=== PATIENT | female | born 1945 | race African-American/Black ===

== ENCOUNTER 2023-04-08 15:04 | Inpatient (IN) | payer BC, OTHER ==
[~2023-04-08] VITALS: Ht 172.7 cm; Wt 134.7 kg
[2023-04-08 15:17] VITALS: BP 111/55; PULSE 121; RESP 26; TEMP 97.9; O2SAT 94
[2023-04-08] MEDS ORDERED: NACL 0.9% 2,000 ML IV ONE (15:30)
[2023-04-08 15:54] LABS: HEMATOCRIT 39.5 % (36-48); MEAN CORPUSCULAR HEMOGLOBIN 30 pg (27-31); MEAN CORPUSCULAR HGB CONC 33 g/dL (33-37); MEAN CORPUSCULAR VOLUME 89.9 fL (80-94); PLATELET COUNT (AUTO) 129 K/uL (140-450); RED CELL DISTRIBUTION WIDTH 15.4 % (11.6-13.7); WHITE BLOOD COUNT (AUTO) 16.1 K/uL (4.8-10.8)
[2023-04-08 16:05] LABS: ANION GAP 16.8 (8-16); CALCIUM 8.2 mg/dL (8.5-10.1); CHLORIDE 94 mmol/L (98-107); CREATININE 3.2 mg/dL (0.6-1.3); POTASSIUM 3.8 mmol/L (3.5-5.1); SODIUM SERUM 129 mmol/L (136-145); UREA NITROGEN, BLOOD 42 mg/dL (7-18)
[2023-04-08 16:15] LABS: LACTIC ACID 6.1 mmol/L (0.4-2.0)
[2023-04-08 16:16] LABS: GLUCOSE 533 mg/dL (74-106)
[2023-04-08 16:19] LABS: BASOPHILS % (MANUAL) 0 % (0-2); EOSINOPHILS % (MANUAL) 0 % (0-4); LYMPHOCYTES % (MANUAL) 5 % (20-46); METAMYELOCYTES % 4 % (0-0); MONOCYTES % (MANUAL) 1 % (5-12); MYELOCYTES % 2 % (0-0); SMUDGE CELLS FEW
[2023-04-08] MEDS ORDERED: cefTRIAXone 1,000 MG VIAL ONE (16:27)
[2023-04-08] MEDS ORDERED: KCL 20 MEQ IN 100 mL PREMIX 100 ML IV ONE (16:35)
[2023-04-08] MEDS ORDERED: INSULIN REGULAR, HUMAN 100 UNIT in NACL 0.9% 100 ML IV ONE ×4 (16:35→18:05)
[2023-04-08 17:30] VITALS: O2SAT 92
[2023-04-08] MEDS ORDERED: DEXTROSE 50% 50 ML SYR IVP PRN ×2 (18:20→21:00)
[2023-04-08] MEDS ORDERED: INSULIN REGULAR, HUMAN 100 UNIT in NACL 0.9% 100 ML IV SCH ×2 (18:20)
[2023-04-08] MEDS: BLOOD GLUCOSE MONITORING 1 DEV DEV FS SCH ×7 (18:40→23:30)
[2023-04-08 19:24] LABS: ANION GAP 10.9 (8-16); CHLORIDE 96 mmol/L (98-107); CREATININE 3.5 mg/dL (0.6-1.3); POTASSIUM 3.9 mmol/L (3.5-5.1); SODIUM SERUM 131 mmol/L (136-145); UREA NITROGEN, BLOOD 44 mg/dL (7-18)
[2023-04-08 19:33] LABS: GLUCOSE 472 mg/dL (74-106)
[2023-04-08 19:40] LABS: FREE T4 (FREE THYROXINE) 1.09 ng/dL (0.76-1.46); THYROID STIMULATING HORMONE 0.25 uIU/mL (0.34-3.74)
[2023-04-08] MEDS ORDERED: diazePAM 5 MG TAB PO ONE (19:40)
[2023-04-08 19:44] LABS: MAGNESIUM 2.1 mg/dL (1.8-2.4); PHOSPHORUS 3.1 mg/dL (2.5-4.9)
[2023-04-08] MEDS: NACL 0.9% 1,000 ML IV SCH (20:30)
[2023-04-08 21:00] VITALS: BP 119/66; PULSE 106; PULSE 108; RESP 24; RESP 34; TEMP 97.2; O2SAT 94
[2023-04-08 22:00] VITALS: BP 120/63; PULSE 106; RESP 37; O2SAT 93
[2023-04-08] MEDS: FUROSEMIDE 40 MG/4 ML VIAL IVP SCH (22:38)
[2023-04-08 23:00] VITALS: BP 100/66; PULSE 110; RESP 36; O2SAT 93
[2023-04-09] VITALS (19 sets, daily range): BP systolic 101–159; BP diastolic 63–88; PULSE 101–120; RESP 20–34; TEMP 98–99; O2SAT 91–97
[2023-04-09] MEDS: DEXT 5% / NACL 0.45% 1,000 ML IV SCH ×4 (00:35→12:00)
[2023-04-09 00:48] LABS: APPEARANCE,URINE CLEAR (CLEAR); BILIRUBIN,URINE 1+ (NEGATIVE); BLOOD, URINE 3+ (NEGATIVE); COLOR,URINE YELLOW (YELLOW); LEUKOCYTE ESTERASE ,URINE NEGATIVE (NEGATIVE); NITRITE, URINE NEGATIVE (NEGATIVE); PROTEIN,URINE 2+ (NEGATIVE); UGLUCOSE TRACE (NEGATIVE); UROBILINOGEN,URINE 0.2 EU/dL (0.2 - 1)
[2023-04-09 00:52] LABS: ANION GAP 12.9 (8-16); CALCIUM 8.1 mg/dL (8.5-10.1); CARBON DIOXIDE 26.9 mmol/L (21-32); CHLORIDE 100 mmol/L (98-107); CREATININE 3.8 mg/dL (0.6-1.3); GLUCOSE 148 mg/dL (74-106); POTASSIUM 3.8 mmol/L (3.5-5.1); SODIUM SERUM 136 mmol/L (136-145); UREA NITROGEN, BLOOD 46 mg/dL (7-18)
[2023-04-09 00:53] LABS: BACTERIA,URINE 10-30 (MOD) /HPF (None Seen); ICTOTEST POSITIVE (NEGATIVE); RBC,URINE TOO NUMEROUS TO COUN /HPF (0-5); WBC,URINE 0-5 /HPF (0-5)
[2023-04-09 00:54] LABS: MUCUS,URINE 1+ /LPF (None Seen); SQUAMOUS EPITHELIAL CELL,UR 4-10 (MOD) /LPF (0-3 (FEW))
[2023-04-09 00:57] LABS: MAGNESIUM 2.2 mg/dL (1.8-2.4); PHOSPHORUS 3.3 mg/dL (2.5-4.9)
[2023-04-09] MEDS: BLOOD GLUCOSE MONITORING 1 DEV DEV FS SCH ×16 (01:30→21:35)
[2023-04-09] MEDS: NACL 0.9% 1,000 ML IV SCH ×4 (03:51→15:46)
[2023-04-09 04:57] LABS: ANION GAP 14.4 (8-16); CARBON DIOXIDE 21.4 mmol/L (21-32); CHLORIDE 100 mmol/L (98-107); CREATININE 3.9 mg/dL (0.6-1.3); GLUCOSE 199 mg/dL (74-106); POTASSIUM 3.8 mmol/L (3.5-5.1); SODIUM SERUM 132 mmol/L (136-145); UREA NITROGEN, BLOOD 49 mg/dL (7-18)
[2023-04-09 05:31] LABS: PHOSPHORUS 2.6 mg/dL (2.5-4.9)
[2023-04-09] MEDS: INSULIN REGULAR, HUMAN 100 UNIT in NACL 0.9% 100 ML IV SCH ×4 (07:23→12:24)
[2023-04-09] MEDS: FUROSEMIDE 40 MG/4 ML VIAL IVP SCH ×2 (08:18→21:35)
[2023-04-09 08:22] LABS: ANION GAP 12.8 (8-16); CALCIUM 7.8 mg/dL (8.5-10.1); CARBON DIOXIDE 22.8 mmol/L (21-32); CHLORIDE 101 mmol/L (98-107); GLUCOSE 185 mg/dL (74-106); POTASSIUM 3.6 mmol/L (3.5-5.1); SODIUM SERUM 133 mmol/L (136-145); UREA NITROGEN, BLOOD 50 mg/dL (7-18)
[2023-04-09 08:27] LABS: MAGNESIUM 2.1 mg/dL (1.8-2.4); PHOSPHORUS 2.6 mg/dL (2.5-4.9)
[2023-04-09 08:32] LABS: CREATININE 4.1 mg/dL (0.6-1.3)
[2023-04-09 10:46] LABS: BASOPHILS % (AUTO) 0.3 % (0.0-2.0); EOSINOPHILS # (AUTO) 3.3 K/uL (0-0.4); EOSINOPHILS % (AUTO) 19.4 % (0.0-4.0); HEMATOCRIT 35.8 % (36-48); HEMOGLOBIN 11.8 g/dL (12.0-16.0); LYMPHOCYTES # (AUTO) 0.7 K/uL (2.5-16.5); LYMPHOCYTES % (AUTO) 4.4 % (20.5-51.1); MEAN CORPUSCULAR HEMOGLOBIN 29 pg (27-31); MEAN CORPUSCULAR HGB CONC 33 g/dL (33-37); MEAN CORPUSCULAR VOLUME 87.9 fL (80-94); MONOCYTES # (AUTO) 0.7 K/uL (0.8-1.0); MONOCYTES % (AUTO) 3.9 % (1.7-9.3); NEUTROPHILS # (AUTO) 12.2 K/uL (1.8-7.7); PLATELET COUNT (AUTO) 86 K/uL (140-450); RED BLOOD CELL COUNT(AUTO) 4.07 MIL/uL (4.20-5.40); RED CELL DISTRIBUTION WIDTH 15.1 % (11.6-13.7); WHITE BLOOD COUNT (AUTO) 16.9 K/uL (4.8-10.8)
[2023-04-09] MEDS ORDERED: ALBUTEROL SULFATE/IPRATROPIU 3 ML SOL IH ONE (13:22)
[2023-04-09] MEDS: ALBUTEROL SULFATE/IPRATROPIU 3 ML SOL IH PRN ×2 (13:33→15:33)
[2023-04-09] MEDS ORDERED: FOAM DRESSING TP PRN (13:55)
[2023-04-09] MEDS ORDERED: DEXTROSE 50% 50 ML SYR IVP PRN ×3 (14:40→14:45)
[2023-04-09] MEDS ORDERED: INSULIN LISPRO SLIDING SCALE 100 UNITS/ML VIAL SUBQ PRN ×2 (14:40→14:45)
[2023-04-09] MEDS ORDERED: INSULIN LANTUS 100 UNITS/ML 10 ML VIAL SUBQ SCH (15:00)
[2023-04-09] MEDS: FOAM DRESSING TP SCH (15:47)
[2023-04-09] MEDS ORDERED: BLOOD GLUCOSE MONITORING 1 DEV DEV FS SCH ×2 (16:30)
[2023-04-09] MEDS: INSULIN LISPRO SLIDING SCALE 100 UNITS/ML VIAL SUBQ PRN ×2 (16:55→21:38)
[2023-04-09] MEDS: predniSONE 20 MG TAB PO SCH (16:57)
[2023-04-09 18:13] LABS: BASOPHILS % (AUTO) 0.3 % (0.0-2.0); EOSINOPHILS # (AUTO) 1.7 K/uL (0-0.4); EOSINOPHILS % (AUTO) 10.7 % (0.0-4.0); HEMATOCRIT 36.5 % (36-48); HEMOGLOBIN 12.1 g/dL (12.0-16.0); LYMPHOCYTES # (AUTO) 0.9 K/uL (2.5-16.5); LYMPHOCYTES % (AUTO) 5.4 % (20.5-51.1); MEAN CORPUSCULAR HEMOGLOBIN 29 pg (27-31); MEAN CORPUSCULAR HGB CONC 33 g/dL (33-37); MEAN CORPUSCULAR VOLUME 88.4 fL (80-94); MONOCYTES # (AUTO) 0.9 K/uL (0.8-1.0); MONOCYTES % (AUTO) 5.6 % (1.7-9.3); NEUTROPHILS # (AUTO) 12.5 K/uL (1.8-7.7); PLATELET COUNT (AUTO) 96 K/uL (140-450); RED BLOOD CELL COUNT(AUTO) 4.13 MIL/uL (4.20-5.40); RED CELL DISTRIBUTION WIDTH 15.4 % (11.6-13.7); WHITE BLOOD COUNT (AUTO) 16.1 K/uL (4.8-10.8)
[2023-04-09 18:24] LABS: ANION GAP 14.5 (8-16); CALCIUM 7.9 mg/dL (8.5-10.1); CARBON DIOXIDE 23.2 mmol/L (21-32); CHLORIDE 99 mmol/L (98-107); GLUCOSE 268 mg/dL (74-106); POTASSIUM 3.7 mmol/L (3.5-5.1); SODIUM SERUM 133 mmol/L (136-145); UREA NITROGEN, BLOOD 55 mg/dL (7-18)
[2023-04-09 18:27] LABS: CREATININE 4.6 mg/dL (0.6-1.3)
[2023-04-09] MEDS: ALBUTEROL SULFATE/IPRATROPIU 3 ML SOL IH SCH (19:37)
[2023-04-09] MEDS: BUDESONIDE 0.5 MG/2 ML NEBU INH SCH (19:37)
[2023-04-09] MEDS: FAMOTIDINE 20 MG/2 ML VIAL IV SCH (21:36)
[2023-04-10] VITALS (18 sets, daily range): BP systolic 112–134; BP diastolic 58–78; PULSE 101–120; RESP 15–26; TEMP 96.3–98.4; O2SAT 94–98
[2023-04-10] MEDS: ALBUTEROL SULFATE/IPRATROPIU 3 ML SOL IH SCH ×4 (00:46→20:40)
[2023-04-10] MEDS: HYDRAGUARD CREAM TP SCH ×2 (01:00→13:04)
[2023-04-10] MEDS: NACL 0.9% 1,000 ML IV SCH ×3 (06:38→22:28)
[2023-04-10] MEDS: BLOOD GLUCOSE MONITORING 1 DEV DEV FS SCH ×14 (06:51→23:40)
[2023-04-10 06:55] LABS: BASOPHILS % (AUTO) 0.2 % (0.0-2.0); EOSINOPHILS # (AUTO) 0.7 K/uL (0-0.4); EOSINOPHILS % (AUTO) 4.4 % (0.0-4.0); HEMATOCRIT 36.2 % (36-48); HEMOGLOBIN 12.1 g/dL (12.0-16.0); LYMPHOCYTES % (AUTO) 6.5 % (20.5-51.1); MEAN CORPUSCULAR HEMOGLOBIN 30 pg (27-31); MEAN CORPUSCULAR HGB CONC 34 g/dL (33-37); MEAN CORPUSCULAR VOLUME 89.2 fL (80-94); MONOCYTES # (AUTO) 0.5 K/uL (0.8-1.0); MONOCYTES % (AUTO) 3.4 % (1.7-9.3); NEUTROPHILS # (AUTO) 13.4 K/uL (1.8-7.7); NEUTROPHILS % (AUTO) 85.5 % (42.2-75.2); PLATELET COUNT (AUTO) 103 K/uL (140-450); RED BLOOD CELL COUNT(AUTO) 4.05 MIL/uL (4.20-5.40); RED CELL DISTRIBUTION WIDTH 16.1 % (11.6-13.7); WHITE BLOOD COUNT (AUTO) 15.7 K/uL (4.8-10.8)
[2023-04-10] MEDS: INSULIN LISPRO SLIDING SCALE 100 UNITS/ML VIAL SUBQ PRN ×2 (06:55→11:50)
[2023-04-10] MEDS: BUDESONIDE 0.5 MG/2 ML NEBU INH SCH ×2 (06:57→20:40)
[2023-04-10 07:02] LABS: ALANINE AMINOTRANSFERASE 319 U/L (12-78); ALBUMIN 1.7 g/dL (3.4-5.0); ALKALINE PHOSPHATASE 489 U/L (50-136); ANION GAP 21.1 (8-16); ASPARTATE AMINOTRANSFERASE 313 U/L (15-37); CALCIUM 7.9 mg/dL (8.5-10.1); CARBON DIOXIDE 18.4 mmol/L (21-32); CHLORIDE 96 mmol/L (98-107); GLUCOSE 397 mg/dL (74-106); MAGNESIUM 2.4 mg/dL (1.8-2.4); POTASSIUM 4.5 mmol/L (3.5-5.1); SODIUM SERUM 131 mmol/L (136-145); TOTAL BILIRUBIN 6.4 mg/dL (0.0-1.0); TOTAL PROTEIN, SERUM 6.1 g/dL (6.4-8.2)
[2023-04-10 07:35] LABS: CREATININE 5.3 mg/dL (0.6-1.3); UREA NITROGEN, BLOOD 70 mg/dL (7-18)
[2023-04-10] MEDS: FUROSEMIDE 40 MG/4 ML VIAL IVP SCH ×2 (08:27→20:47)
[2023-04-10] MEDS: predniSONE 20 MG TAB PO SCH (08:28)
[2023-04-10] MEDS ORDERED: INSULIN LANTUS 100 UNITS/ML 10 ML VIAL SUBQ SCH ×2 (09:00→12:30)
[2023-04-10] MEDS: AZITHROMYCIN 250 MG TAB PO SCH (09:41)
[2023-04-10 12:08] LABS: T4 (THYROXINE) 5.7 ug/dL (4.5-12.0)
[2023-04-10] MEDS: FOAM DRESSING TP SCH (13:04)
[2023-04-10] MEDS: GAUZE TP SCH (13:04)
[2023-04-10] MEDS ORDERED: INSULIN LISPRO SLIDING SCALE 100 UNITS/ML VIAL SUBQ PRN (14:55)
[2023-04-10] MEDS ORDERED: DEXTROSE 50% 50 ML SYR IVP PRN (14:55)
[2023-04-10 15:56] LABS: CALCIUM 8.1 mg/dL (8.5-10.1); CHLORIDE 93 mmol/L (98-107); SODIUM SERUM 127 mmol/L (136-145)
[2023-04-10 15:57] LABS: GLUCOSE 579 mg/dL (74-106)
[2023-04-10 15:58] LABS: CREATININE 5.6 mg/dL (0.6-1.3); UREA NITROGEN, BLOOD 82 mg/dL (7-18)
[2023-04-10] MEDS ORDERED: BLOOD GLUCOSE MONITORING 1 DEV DEV FS SCH (16:00)
[2023-04-10] MEDS: INSULIN REGULAR, HUMAN 100 UNIT in NACL 0.9% 100 ML IV SCH ×4 (16:07→23:34)
[2023-04-10 20:45] LABS: ANION GAP 14.8 (8-16); CALCIUM 8.1 mg/dL (8.5-10.1); CARBON DIOXIDE 21.1 mmol/L (21-32); CHLORIDE 95 mmol/L (98-107); POTASSIUM 3.9 mmol/L (3.5-5.1); SODIUM SERUM 127 mmol/L (136-145)
[2023-04-10 20:46] LABS: GLUCOSE 480 mg/dL (74-106)
[2023-04-10 20:48] LABS: CREATININE 5.6 mg/dL (0.6-1.3); UREA NITROGEN, BLOOD 84 mg/dL (7-18)
[2023-04-10 20:50] LABS: MAGNESIUM 2.5 mg/dL (1.8-2.4); PHOSPHORUS 3.4 mg/dL (2.5-4.9)
[2023-04-11] VITALS (29 sets, daily range): BP systolic 111–156; BP diastolic 57–91; PULSE 93–116; RESP 12–24; TEMP 96.7–97.6; O2SAT 93–100
[2023-04-11] MEDS: BLOOD GLUCOSE MONITORING 1 DEV DEV FS SCH ×24 (00:30→23:34)
[2023-04-11 00:38] LABS: ANION GAP 13.7 (8-16); CALCIUM 7.7 mg/dL (8.5-10.1); CARBON DIOXIDE 22.1 mmol/L (21-32); CHLORIDE 96 mmol/L (98-107); GLUCOSE 387 mg/dL (74-106); POTASSIUM 3.8 mmol/L (3.5-5.1); SODIUM SERUM 128 mmol/L (136-145)
[2023-04-11 00:43] LABS: MAGNESIUM 2.4 mg/dL (1.8-2.4); PHOSPHORUS 3.8 mg/dL (2.5-4.9)
[2023-04-11 00:46] LABS: CREATININE 5.7 mg/dL (0.6-1.3); UREA NITROGEN, BLOOD 85 mg/dL (7-18)
[2023-04-11] MEDS: ALBUTEROL SULFATE/IPRATROPIU 3 ML SOL IH SCH ×5 (01:00→19:26)
[2023-04-11] MEDS: HYDRAGUARD CREAM TP SCH ×2 (01:00→12:45)
[2023-04-11 04:16] LABS: HEMATOCRIT 35.1 % (36-48); HEMOGLOBIN 11.8 g/dL (12.0-16.0); MEAN CORPUSCULAR HEMOGLOBIN 30 pg (27-31); MEAN CORPUSCULAR HGB CONC 34 g/dL (33-37); MEAN CORPUSCULAR VOLUME 87.9 fL (80-94); PLATELET COUNT (AUTO) 121 K/uL (140-450); RED BLOOD CELL COUNT(AUTO) 3.99 MIL/uL (4.20-5.40); RED CELL DISTRIBUTION WIDTH 15.8 % (11.6-13.7); WHITE BLOOD COUNT (AUTO) 17.7 K/uL (4.8-10.8)
[2023-04-11 04:31] LABS: ALANINE AMINOTRANSFERASE 367 U/L (12-78); ALBUMIN 1.8 g/dL (3.4-5.0); ALKALINE PHOSPHATASE 665 U/L (50-136); ANION GAP 16.2 (8-16); ASPARTATE AMINOTRANSFERASE 385 U/L (15-37); CALCIUM 7.8 mg/dL (8.5-10.1); CARBON DIOXIDE 21.2 mmol/L (21-32); CHLORIDE 97 mmol/L (98-107); GLUCOSE 263 mg/dL (74-106); MAGNESIUM 2.4 mg/dL (1.8-2.4); PHOSPHORUS 3.8 mg/dL (2.5-4.9); POTASSIUM 3.4 mmol/L (3.5-5.1); SODIUM SERUM 131 mmol/L (136-145); TOTAL BILIRUBIN 6.6 mg/dL (0.0-1.0); TOTAL PROTEIN, SERUM 6.1 g/dL (6.4-8.2)
[2023-04-11 04:33] LABS: CREATININE 5.7 mg/dL (0.6-1.3); UREA NITROGEN, BLOOD 85 mg/dL (7-18)
[2023-04-11 04:43] LABS: BASOPHILS % (MANUAL) 0 % (0-2); EOSINOPHILS % (MANUAL) 0 % (0-4); LYMPHOCYTES % (MANUAL) 14 % (20-46); MONOCYTES % (MANUAL) 6 % (5-12)
[2023-04-11 04:44] LABS: BLASTS, MANUAL % 1 % (0-0); MYELOCYTES % 1 % (0-0); SMUDGE CELLS FEW
[2023-04-11] MEDS: NACL 0.9% 1,000 ML IV SCH ×3 (05:16→19:06)
[2023-04-11] MEDS: INSULIN REGULAR, HUMAN 100 UNIT in NACL 0.9% 100 ML IV SCH ×4 (05:42→17:50)
[2023-04-11] MEDS: DEXT 5% / NACL 0.45% 1,000 ML IV SCH ×4 (06:31→23:47)
[2023-04-11] MEDS: BUDESONIDE 0.5 MG/2 ML NEBU INH SCH ×2 (07:06→19:27)
[2023-04-11 07:08] LABS: HEPATITIS A ANTIBODY IGM Negative (Negative); HEPATITIS B CORE AB TOTAL Negative (Negative); HEPATITIS B CORE, IGM Negative (Negative); HEPATITIS B SURFACE ANTIBODY Non Reactive (.); HEPATITIS B SURFACE ANTIGEN Negative (Negative); HEPATITIS C VIRUS ANTIBODY Non Reactive (Non Reactive)
[2023-04-11] MEDS ORDERED: POTASSIUM CHLORIDE 10 MEQ TABER PO SCH (08:16)
[2023-04-11] MEDS: FUROSEMIDE 40 MG/4 ML VIAL IVP SCH ×2 (09:07→20:51)
[2023-04-11] MEDS: AZITHROMYCIN 250 MG TAB PO SCH (09:08)
[2023-04-11] MEDS: CEFEPIME 500 MG in DEXTROSE 5% 50 ML IV SCH (09:27)
[2023-04-11] MEDS: FAMOTIDINE 20 MG/2 ML VIAL IV SCH (09:27)
[2023-04-11 09:44] LABS: MAGNESIUM 2.5 mg/dL (1.8-2.4); PHOSPHORUS 3.7 mg/dL (2.5-4.9)
[2023-04-11 09:48] LABS: ANION GAP 15.3 (8-16); CALCIUM 8.1 mg/dL (8.5-10.1); CHLORIDE 98 mmol/L (98-107); GLUCOSE 207 mg/dL (74-106); POTASSIUM 3.3 mmol/L (3.5-5.1); SODIUM SERUM 134 mmol/L (136-145)
[2023-04-11 09:50] LABS: CREATININE 5.6 mg/dL (0.6-1.3); UREA NITROGEN, BLOOD 85 mg/dL (7-18)
[2023-04-11] MEDS: GAUZE TP SCH (12:45)
[2023-04-11] MEDS: FOAM DRESSING TP SCH (12:45)
[2023-04-11 13:44] LABS: ANION GAP 15.1 (8-16); CALCIUM 7.9 mg/dL (8.5-10.1); CARBON DIOXIDE 23.5 mmol/L (21-32); CHLORIDE 98 mmol/L (98-107); GLUCOSE 174 mg/dL (74-106); POTASSIUM 3.6 mmol/L (3.5-5.1); SODIUM SERUM 133 mmol/L (136-145)
[2023-04-11 13:49] LABS: CREATININE 5.5 mg/dL (0.6-1.3); UREA NITROGEN, BLOOD 86 mg/dL (7-18)
[2023-04-11 16:52] LABS: ANION GAP 16.8 (8-16); CALCIUM 8.3 mg/dL (8.5-10.1); CARBON DIOXIDE 21.8 mmol/L (21-32); CHLORIDE 97 mmol/L (98-107); GLUCOSE 202 mg/dL (74-106); POTASSIUM 3.6 mmol/L (3.5-5.1); SODIUM SERUM 132 mmol/L (136-145)
[2023-04-11 16:54] LABS: CREATININE 5.6 mg/dL (0.6-1.3); UREA NITROGEN, BLOOD 88 mg/dL (7-18)
[2023-04-11] MEDS: ACETAMINOPHEN 650 MG/20.3 ML UDC PO PRN (19:06)
[2023-04-11] MEDS ORDERED: HYDROcodone/APAP 5/325 MG 1 TAB TAB PO PRN (20:20)
[2023-04-11 20:42] LABS: ANION GAP 12.6 (8-16); CALCIUM 8.1 mg/dL (8.5-10.1); CARBON DIOXIDE 23.8 mmol/L (21-32); CHLORIDE 99 mmol/L (98-107); GLUCOSE 153 mg/dL (74-106); POTASSIUM 3.4 mmol/L (3.5-5.1); SODIUM SERUM 132 mmol/L (136-145)
[2023-04-11 20:43] LABS: UREA NITROGEN, BLOOD 88 mg/dL (7-18)
[2023-04-11 20:44] LABS: CREATININE 5.6 mg/dL (0.6-1.3)
[2023-04-12] VITALS (27 sets, daily range): BP systolic 101–142; BP diastolic 45–84; PULSE 100–115; RESP 14–26; TEMP 96.7–98.7; O2SAT 91–100
[2023-04-12] MEDS: BLOOD GLUCOSE MONITORING 1 DEV DEV FS SCH ×16 (00:38→20:48)
[2023-04-12 00:39] LABS: ANION GAP 15.3 (8-16); CALCIUM 8.1 mg/dL (8.5-10.1); CARBON DIOXIDE 20.1 mmol/L (21-32); CHLORIDE 100 mmol/L (98-107); GLUCOSE 146 mg/dL (74-106); POTASSIUM 3.4 mmol/L (3.5-5.1); SODIUM SERUM 132 mmol/L (136-145)
[2023-04-12 00:44] LABS: CREATININE 5.4 mg/dL (0.6-1.3); UREA NITROGEN, BLOOD 88 mg/dL (7-18)
[2023-04-12] MEDS: NACL 0.9% 1,000 ML IV SCH ×3 (01:14→15:36)
[2023-04-12] MEDS: ALBUTEROL SULFATE/IPRATROPIU 3 ML SOL IH SCH ×4 (01:30→18:45)
[2023-04-12] MEDS: HYDRAGUARD CREAM TP SCH ×2 (01:47→13:00)
[2023-04-12] MEDS: MORPHINE SULFATE 2 MG/ML SYR IVP PRN ×3 (04:01→15:27)
[2023-04-12 04:11] LABS: BASOPHILS # (AUTO) 0.1 K/uL (0.00-0.22); BASOPHILS % (AUTO) 0.6 % (0.0-2.0); EOSINOPHILS # (AUTO) 0.2 K/uL (0-0.4); EOSINOPHILS % (AUTO) 1.3 % (0.0-4.0); HEMATOCRIT 36.1 % (36-48); HEMOGLOBIN 12.3 g/dL (12.0-16.0); LYMPHOCYTES # (AUTO) 2.3 K/uL (2.5-16.5); LYMPHOCYTES % (AUTO) 16.7 % (20.5-51.1); MEAN CORPUSCULAR HEMOGLOBIN 30 pg (27-31); MEAN CORPUSCULAR HGB CONC 34 g/dL (33-37); MEAN CORPUSCULAR VOLUME 86.8 fL (80-94); MONOCYTES # (AUTO) 0.9 K/uL (0.8-1.0); MONOCYTES % (AUTO) 6.5 % (1.7-9.3); NEUTROPHILS # (AUTO) 10.1 K/uL (1.8-7.7); NEUTROPHILS % (AUTO) 74.9 % (42.2-75.2); PLATELET COUNT (AUTO) 117 K/uL (140-450); RED BLOOD CELL COUNT(AUTO) 4.16 MIL/uL (4.20-5.40); RED CELL DISTRIBUTION WIDTH 15.3 % (11.6-13.7); WHITE BLOOD COUNT (AUTO) 13.5 K/uL (4.8-10.8)
[2023-04-12 05:25] LABS: ALANINE AMINOTRANSFERASE 411 U/L (12-78); ALBUMIN 1.6 g/dL (3.4-5.0); ALKALINE PHOSPHATASE 682 U/L (50-136); ANION GAP 13.3 (8-16); ASPARTATE AMINOTRANSFERASE 356 U/L (15-37); CALCIUM 7.7 mg/dL (8.5-10.1); CARBON DIOXIDE 24.2 mmol/L (21-32); CHLORIDE 98 mmol/L (98-107); GLUCOSE 122 mg/dL (74-106); MAGNESIUM 2.1 mg/dL (1.8-2.4); POTASSIUM 3.5 mmol/L (3.5-5.1); SODIUM SERUM 132 mmol/L (136-145); TOTAL PROTEIN, SERUM 5.4 g/dL (6.4-8.2)
[2023-04-12 05:30] LABS: CREATININE 5.3 mg/dL (0.6-1.3); UREA NITROGEN, BLOOD 88 mg/dL (7-18)
[2023-04-12] MEDS: DEXT 5% / NACL 0.45% 1,000 ML IV SCH ×2 (05:32→13:07)
[2023-04-12] MEDS: BUDESONIDE 0.5 MG/2 ML NEBU INH SCH ×2 (06:48→18:45)
[2023-04-12] MEDS: FUROSEMIDE 40 MG/4 ML VIAL IVP SCH ×2 (08:27→20:49)
[2023-04-12] MEDS: AZITHROMYCIN 250 MG TAB PO SCH (08:28)
[2023-04-12 08:30] LABS: ANION GAP 12.9 (8-16); CALCIUM 7.9 mg/dL (8.5-10.1); CARBON DIOXIDE 21.6 mmol/L (21-32); CHLORIDE 100 mmol/L (98-107); GLUCOSE 109 mg/dL (74-106); POTASSIUM 3.5 mmol/L (3.5-5.1); SODIUM SERUM 131 mmol/L (136-145)
[2023-04-12 08:34] LABS: CREATININE 5.6 mg/dL (0.6-1.3); UREA NITROGEN, BLOOD 91 mg/dL (7-18)
[2023-04-12] MEDS: INSULIN REGULAR, HUMAN 100 UNIT in NACL 0.9% 100 ML IV SCH ×2 (09:00)
[2023-04-12 09:41] LABS: HEPATITIS A ANTIBODY TOTAL Positive (Negative)
[2023-04-12 09:45] LABS: HEMOGLOBIN A1C 10.9 % (4.8-5.6)
[2023-04-12] MEDS: CEFEPIME 500 MG in DEXTROSE 5% 50 ML IV SCH (09:54)
[2023-04-12 12:56] LABS: ANION GAP 13.3 (8-16); CARBON DIOXIDE 22.4 mmol/L (21-32); CHLORIDE 99 mmol/L (98-107); GLUCOSE 92 mg/dL (74-106); POTASSIUM 3.7 mmol/L (3.5-5.1); SODIUM SERUM 131 mmol/L (136-145)
[2023-04-12 12:57] LABS: UREA NITROGEN, BLOOD 89 mg/dL (7-18)
[2023-04-12 12:58] LABS: CREATININE 5.5 mg/dL (0.6-1.3)
[2023-04-12] MEDS: FOAM DRESSING TP SCH (13:00)
[2023-04-12] MEDS: GAUZE TP SCH (13:00)
[2023-04-12] MEDS ORDERED: INSULIN LANTUS 100 UNITS/ML 10 ML VIAL SUBQ SCH (14:56)
[2023-04-12 16:09] LABS: ANION GAP 13.3 (8-16); CARBON DIOXIDE 21.5 mmol/L (21-32); CHLORIDE 99 mmol/L (98-107); GLUCOSE 129 mg/dL (74-106); POTASSIUM 3.8 mmol/L (3.5-5.1); SODIUM SERUM 130 mmol/L (136-145)
[2023-04-12 16:43] LABS: CREATININE 5.5 mg/dL (0.6-1.3); UREA NITROGEN, BLOOD 89 mg/dL (7-18)
[2023-04-12] MEDS: MEROPENEM 500 MG in NACL 0.9% 50 ML IV SCH (18:42)
[2023-04-12] MEDS: INSULIN LISPRO SLIDING SCALE 100 UNITS/ML VIAL SUBQ PRN (20:51)
[2023-04-12] MEDS ORDERED: MEROPENEM 1,000 MG in NACL 0.9% 50 ML IV SCH (21:00)
[2023-04-13] VITALS (18 sets, daily range): BP systolic 106–139; BP diastolic 53–65; PULSE 92–104; RESP 16–22; TEMP 97.6–98.5; O2SAT 90–100
[2023-04-13] MEDS: ALBUTEROL SULFATE/IPRATROPIU 3 ML SOL IH SCH ×4 (00:23→19:00)
[2023-04-13] MEDS: HYDRAGUARD CREAM TP SCH ×2 (01:00→13:17)
[2023-04-13] MEDS: NACL 0.9% 1,000 ML IV SCH ×3 (03:15→16:51)
[2023-04-13 04:38] LABS: HEMATOCRIT 33.2 % (36-48); HEMOGLOBIN 11.3 g/dL (12.0-16.0); MEAN CORPUSCULAR HEMOGLOBIN 30 pg (27-31); MEAN CORPUSCULAR HGB CONC 34 g/dL (33-37); MEAN CORPUSCULAR VOLUME 86.6 fL (80-94); PLATELET COUNT (AUTO) 145 K/uL (140-450); RED BLOOD CELL COUNT(AUTO) 3.83 MIL/uL (4.20-5.40); RED CELL DISTRIBUTION WIDTH 15.8 % (11.6-13.7); WHITE BLOOD COUNT (AUTO) 16.9 K/uL (4.8-10.8)
[2023-04-13 04:55] LABS: ALANINE AMINOTRANSFERASE 286 U/L (12-78); ALBUMIN 1.4 g/dL (3.4-5.0); ALKALINE PHOSPHATASE 653 U/L (50-136); ANION GAP 11.9 (8-16); ASPARTATE AMINOTRANSFERASE 162 U/L (15-37); CALCIUM 7.8 mg/dL (8.5-10.1); CHLORIDE 98 mmol/L (98-107); GLUCOSE 202 mg/dL (74-106); MAGNESIUM 2.1 mg/dL (1.8-2.4); POTASSIUM 3.9 mmol/L (3.5-5.1); SODIUM SERUM 130 mmol/L (136-145); TOTAL BILIRUBIN 10.4 mg/dL (0.0-1.0); TOTAL PROTEIN, SERUM 5.1 g/dL (6.4-8.2)
[2023-04-13 05:12] LABS: BASOPHILS % (MANUAL) 0 % (0-2); EOSINOPHILS % (MANUAL) 1 % (0-4); LYMPHOCYTES % (MANUAL) 11 % (20-46); MONOCYTES % (MANUAL) 8 % (5-12)
[2023-04-13 05:13] LABS: METAMYELOCYTES % 4 % (0-0); MYELOCYTES % 1 % (0-0); PROMYELOCYTES % 1 % (0-0); SMUDGE CELLS FEW
[2023-04-13 05:21] LABS: CREATININE 5.8 mg/dL (0.6-1.3); UREA NITROGEN, BLOOD 94 mg/dL (7-18)
[2023-04-13] MEDS: BLOOD GLUCOSE MONITORING 1 DEV DEV FS SCH ×4 (06:56→22:01)
[2023-04-13] MEDS: INSULIN LISPRO SLIDING SCALE 100 UNITS/ML VIAL SUBQ PRN ×4 (06:56→22:05)
[2023-04-13] MEDS: BUDESONIDE 0.5 MG/2 ML NEBU INH SCH ×2 (07:01→19:05)
[2023-04-13] MEDS: AZITHROMYCIN 250 MG TAB PO SCH ×2 (09:00→09:23)
[2023-04-13] MEDS ORDERED: INSULIN LANTUS 100 UNITS/ML 10 ML VIAL SUBQ SCH ×2 (09:00→13:11)
[2023-04-13] MEDS: CEFEPIME 500 MG in DEXTROSE 5% 50 ML IV SCH (09:32)
[2023-04-13] MEDS: FAMOTIDINE 20 MG/2 ML VIAL IV SCH (09:32)
[2023-04-13] MEDS: FUROSEMIDE 40 MG/4 ML VIAL IVP SCH ×2 (09:34→21:43)
[2023-04-13] MEDS: GAUZE TP SCH (13:17)
[2023-04-13] MEDS: FOAM DRESSING TP SCH (13:17)
[2023-04-13] MEDS: MEROPENEM 500 MG in NACL 0.9% 50 ML IV SCH (18:47)
[2023-04-13] MEDS: metroNIDAZOLE 500 MG/NS PREMIX 100 ML IV SCH (21:43)
[2023-04-14] VITALS (9 sets, daily range): BP systolic 128–151; BP diastolic 60–68; PULSE 87–97; RESP 18–20; TEMP 96.5–98.8; O2SAT 94–99
[2023-04-14] MEDS: ALBUTEROL SULFATE/IPRATROPIU 3 ML SOL IH SCH ×3 (01:00→13:00)
[2023-04-14] MEDS: HYDRAGUARD CREAM TP SCH ×2 (01:00→13:29)
[2023-04-14] MEDS: BLOOD GLUCOSE MONITORING 1 DEV DEV FS SCH ×4 (06:37→20:29)
[2023-04-14 06:42] LABS: ALANINE AMINOTRANSFERASE 238 U/L (12-78); ALBUMIN 1.5 g/dL (3.4-5.0); ALKALINE PHOSPHATASE 769 U/L (50-136); ANION GAP 14.6 (8-16); ASPARTATE AMINOTRANSFERASE 126 U/L (15-37); CALCIUM 8.4 mg/dL (8.5-10.1); CARBON DIOXIDE 23.1 mmol/L (21-32); CHLORIDE 100 mmol/L (98-107); GLUCOSE 137 mg/dL (74-106); MAGNESIUM 2.3 mg/dL (1.8-2.4); POTASSIUM 3.7 mmol/L (3.5-5.1); SODIUM SERUM 134 mmol/L (136-145); TOTAL BILIRUBIN 11.8 mg/dL (0.0-1.0); TOTAL PROTEIN, SERUM 5.5 g/dL (6.4-8.2)
[2023-04-14 06:44] LABS: CREATININE 5.4 mg/dL (0.6-1.3); UREA NITROGEN, BLOOD 98 mg/dL (7-18)
[2023-04-14 07:03] LABS: HEMATOCRIT 33.4 % (36-48); HEMOGLOBIN 11.3 g/dL (12.0-16.0); MEAN CORPUSCULAR HEMOGLOBIN 29 pg (27-31); MEAN CORPUSCULAR HGB CONC 34 g/dL (33-37); MEAN CORPUSCULAR VOLUME 86.4 fL (80-94); PLATELET COUNT (AUTO) 196 K/uL (140-450); RED BLOOD CELL COUNT(AUTO) 3.87 MIL/uL (4.20-5.40); RED CELL DISTRIBUTION WIDTH 15.2 % (11.6-13.7); WHITE BLOOD COUNT (AUTO) 20.8 K/uL (4.8-10.8)
[2023-04-14] MEDS: NACL 0.9% 1,000 ML IV SCH (07:15)
[2023-04-14] MEDS: BUDESONIDE 0.5 MG/2 ML NEBU INH SCH (07:30)
[2023-04-14 07:48] LABS: EOSINOPHILS % (MANUAL) 2 % (0-4); METAMYELOCYTES % 1 % (0-0); MYELOCYTES % 1 % (0-0)
[2023-04-14 07:50] LABS: LYMPHOCYTES % (MANUAL) 8 % (20-46)
[2023-04-14 07:51] LABS: MONOCYTES % (MANUAL) 6 % (5-12)
[2023-04-14 07:52] LABS: PLATELET ESTIMATE ADEQUATE
[2023-04-14] MEDS: AZITHROMYCIN 250 MG TAB PO SCH (09:00)
[2023-04-14] MEDS: CEFEPIME 500 MG in DEXTROSE 5% 50 ML IV SCH (10:22)
[2023-04-14] MEDS: metroNIDAZOLE 500 MG/NS PREMIX 100 ML IV SCH ×2 (10:22→20:27)
[2023-04-14] MEDS: FUROSEMIDE 40 MG/4 ML VIAL IVP SCH ×2 (10:23→20:26)
[2023-04-14] MEDS: INSULIN LANTUS 100 UNITS/ML 10 ML VIAL SUBQ SCH (10:25)
[2023-04-14 11:25] LABS: INR 1.05 (0.8-1.2)
[2023-04-14] MEDS ORDERED: PHYTONADIONE 10 MG in NACL 0.9% 50 ML IV SCH (11:45)
[2023-04-14] MEDS: GAUZE TP SCH (13:29)
[2023-04-14] MEDS: FOAM DRESSING TP SCH (13:29)
[2023-04-14] MEDS: INSULIN LISPRO SLIDING SCALE 100 UNITS/ML VIAL SUBQ PRN (17:44)
[2023-04-14] MEDS ORDERED: BUDESONIDE 0.5 MG/2 ML NEBU INH PRN (20:05)
[2023-04-15] VITALS (8 sets, daily range): BP systolic 115–148; BP diastolic 50–71; PULSE 76–98; RESP 16–20; TEMP 96.6–98.1; O2SAT 95–98
[2023-04-15] MEDS: HYDRAGUARD CREAM TP SCH ×2 (01:12→13:00)
[2023-04-15] MEDS: MORPHINE SULFATE 2 MG/ML SYR IVP PRN (01:44)
[2023-04-15] MEDS: BLOOD GLUCOSE MONITORING 1 DEV DEV FS SCH ×4 (06:38→20:39)
[2023-04-15 06:56] LABS: BASOPHILS # (AUTO) 0.4 K/uL (0.00-0.22); BASOPHILS % (AUTO) 1.7 % (0.0-2.0); EOSINOPHILS # (AUTO) 0.1 K/uL (0-0.4); EOSINOPHILS % (AUTO) 0.6 % (0.0-4.0); HEMATOCRIT 31.8 % (36-48); HEMOGLOBIN 10.9 g/dL (12.0-16.0); LYMPHOCYTES # (AUTO) 10.5 K/uL (2.5-16.5); LYMPHOCYTES % (AUTO) 51.2 % (20.5-51.1); MEAN CORPUSCULAR HEMOGLOBIN 30 pg (27-31); MEAN CORPUSCULAR HGB CONC 34 g/dL (33-37); MEAN CORPUSCULAR VOLUME 85.7 fL (80-94); MONOCYTES # (AUTO) 1.8 K/uL (0.8-1.0); MONOCYTES % (AUTO) 8.9 % (1.7-9.3); NEUTROPHILS # (AUTO) 7.8 K/uL (1.8-7.7); NEUTROPHILS % (AUTO) 37.6 % (42.2-75.2); PLATELET COUNT (AUTO) 260 K/uL (140-450); RED CELL DISTRIBUTION WIDTH 15.4 % (11.6-13.7); WHITE BLOOD COUNT (AUTO) 20.6 K/uL (4.8-10.8)
[2023-04-15 07:07] LABS: ALANINE AMINOTRANSFERASE 208 U/L (12-78); ALBUMIN 1.5 g/dL (3.4-5.0); ALKALINE PHOSPHATASE 903 U/L (50-136); ANION GAP 14.9 (8-16); ASPARTATE AMINOTRANSFERASE 136 U/L (15-37); CALCIUM 8.1 mg/dL (8.5-10.1); CARBON DIOXIDE 22.6 mmol/L (21-32); CHLORIDE 98 mmol/L (98-107); GLUCOSE 148 mg/dL (74-106); PHOSPHORUS 5.3 mg/dL (2.5-4.9); POTASSIUM 3.5 mmol/L (3.5-5.1); SODIUM SERUM 132 mmol/L (136-145); TOTAL BILIRUBIN 11.7 mg/dL (0.0-1.0); TOTAL PROTEIN, SERUM 5.7 g/dL (6.4-8.2)
[2023-04-15 07:13] LABS: CREATININE 4.9 mg/dL (0.6-1.3); UREA NITROGEN, BLOOD 93 mg/dL (7-18)
[2023-04-15] MEDS ORDERED: BUDESONIDE 0.5 MG/2 ML NEBU INH SCH (07:30)
[2023-04-15] MEDS ORDERED: LORazepam 2 MG/ML VIAL IM/IVP PRN (07:50)
[2023-04-15] MEDS: FAMOTIDINE 20 MG/2 ML VIAL IV SCH (09:38)
[2023-04-15] MEDS: FUROSEMIDE 40 MG/4 ML VIAL IVP SCH (09:38)
[2023-04-15] MEDS: INSULIN LANTUS 100 UNITS/ML 10 ML VIAL SUBQ SCH (09:39)
[2023-04-15] MEDS: CEFEPIME 500 MG in DEXTROSE 5% 50 ML IV SCH (09:43)
[2023-04-15] MEDS: metroNIDAZOLE 500 MG/NS PREMIX 100 ML IV SCH ×2 (09:44→20:31)
[2023-04-15] MEDS ORDERED: POTASSIUM CHLORIDE 10 MEQ TABER PO SCH (11:30)
[2023-04-15] MEDS: FOAM DRESSING TP SCH (13:00)
[2023-04-15] MEDS: GAUZE TP SCH (13:00)
[2023-04-15] MEDS ORDERED: ALBUTEROL SULFATE/IPRATROPIU 3 ML SOL IH PRN (13:00)
[2023-04-16] VITALS (8 sets, daily range): BP systolic 132–145; BP diastolic 59–68; PULSE 84–94; RESP 18–20; TEMP 97–98.3; O2SAT 93–98
[2023-04-16] MEDS: HYDRAGUARD CREAM TP SCH ×2 (01:00→13:57)
[2023-04-16 06:31] LABS: HEMATOCRIT 33.8 % (36-48); HEMOGLOBIN 11.6 g/dL (12.0-16.0); MEAN CORPUSCULAR HEMOGLOBIN 30 pg (27-31); MEAN CORPUSCULAR HGB CONC 34 g/dL (33-37); MEAN CORPUSCULAR VOLUME 86.6 fL (80-94); PLATELET COUNT (AUTO) 291 K/uL (140-450); WHITE BLOOD COUNT (AUTO) 17.8 K/uL (4.8-10.8)
[2023-04-16 06:59] LABS: ALANINE AMINOTRANSFERASE 181 U/L (12-78); ALBUMIN 1.6 g/dL (3.4-5.0); ALKALINE PHOSPHATASE 1067 U/L (50-136); ANION GAP 16.1 (8-16); ASPARTATE AMINOTRANSFERASE 148 U/L (15-37); CALCIUM 8.5 mg/dL (8.5-10.1); CARBON DIOXIDE 23.5 mmol/L (21-32); CHLORIDE 97 mmol/L (98-107); GLUCOSE 116 mg/dL (74-106); POTASSIUM 3.6 mmol/L (3.5-5.1); SODIUM SERUM 133 mmol/L (136-145); TOTAL BILIRUBIN 11.9 mg/dL (0.0-1.0)
[2023-04-16 07:13] LABS: CREATININE 4.3 mg/dL (0.6-1.3); UREA NITROGEN, BLOOD 90 mg/dL (7-18)
[2023-04-16 07:25] LABS: EOSINOPHILS % (MANUAL) 1 % (0-4); LYMPHOCYTES % (MANUAL) 7 % (20-46); MONOCYTES % (MANUAL) 10 % (5-12)
[2023-04-16] MEDS: BLOOD GLUCOSE MONITORING 1 DEV DEV FS SCH ×4 (07:51→20:46)
[2023-04-16] MEDS: FUROSEMIDE 40 MG/4 ML VIAL IVP SCH (09:00)
[2023-04-16] MEDS: CEFEPIME 500 MG in DEXTROSE 5% 50 ML IV SCH ×2 (09:00→18:17)
[2023-04-16] MEDS: metroNIDAZOLE 500 MG/NS PREMIX 100 ML IV SCH ×2 (09:00→20:38)
[2023-04-16] MEDS: INSULIN LANTUS 100 UNITS/ML 10 ML VIAL SUBQ SCH (09:32)
[2023-04-16] MEDS: FOAM DRESSING TP SCH (13:56)
[2023-04-16] MEDS: GAUZE TP SCH (13:57)
[2023-04-16] MEDS ORDERED: MORPHINE SULFATE 2 MG/ML SYR IVP PRN (14:50)
[2023-04-16] MEDS ORDERED: LORazepam 2 MG/ML VIAL IVP PRN (14:50)
[2023-04-16] MEDS: INSULIN LISPRO SLIDING SCALE 100 UNITS/ML VIAL SUBQ PRN (20:45)
[2023-04-17] VITALS (8 sets, daily range): BP systolic 135–159; BP diastolic 44–72; PULSE 80–92; RESP 18–20; TEMP 97.3–98.1; O2SAT 93–97
[2023-04-17] MEDS: HYDRAGUARD CREAM TP SCH ×2 (01:00→13:11)
[2023-04-17] MEDS: BLOOD GLUCOSE MONITORING 1 DEV DEV FS SCH ×4 (06:35→21:05)
[2023-04-17] MEDS: INSULIN LANTUS 100 UNITS/ML 10 ML VIAL SUBQ SCH (09:16)
[2023-04-17] MEDS: FAMOTIDINE 20 MG/2 ML VIAL IV SCH (09:29)
[2023-04-17] MEDS: metroNIDAZOLE 500 MG/NS PREMIX 100 ML IV SCH ×2 (09:29→21:01)
[2023-04-17] MEDS: FUROSEMIDE 40 MG/4 ML VIAL IVP SCH (09:29)
[2023-04-17] MEDS: ACETAMINOPHEN 650 MG/20.3 ML UDC PO PRN (11:24)
[2023-04-17 11:51] LABS: HEMATOCRIT 31.4 % (36-48); HEMOGLOBIN 10.6 g/dL (12.0-16.0); RED BLOOD CELL COUNT(AUTO) 3.62 MIL/uL (4.20-5.40)
[2023-04-17 11:59] LABS: MEAN CORPUSCULAR HEMOGLOBIN 29 pg (27-31); MEAN CORPUSCULAR HGB CONC 34 g/dL (33-37); MEAN CORPUSCULAR VOLUME 86.9 fL (80-94); PLATELET COUNT (AUTO) 305 K/uL (140-450)
[2023-04-17 12:11] LABS: LYMPHOCYTES % (MANUAL) 9 % (20-46)
[2023-04-17 12:12] LABS: EOSINOPHILS % (MANUAL) 1 % (0-4)
[2023-04-17 12:13] LABS: MONOCYTES % (MANUAL) 10 % (5-12)
[2023-04-17 12:41] LABS: ALANINE AMINOTRANSFERASE 180 U/L (12-78); ALBUMIN 1.6 g/dL (3.4-5.0); ALKALINE PHOSPHATASE 1229 U/L (50-136); ANION GAP 13.5 (8-16); ASPARTATE AMINOTRANSFERASE 203 U/L (15-37); CALCIUM 8.4 mg/dL (8.5-10.1); CARBON DIOXIDE 23.8 mmol/L (21-32); CHLORIDE 99 mmol/L (98-107); CREATININE 3.4 mg/dL (0.6-1.3); GLUCOSE 125 mg/dL (74-106); POTASSIUM 3.3 mmol/L (3.5-5.1); SODIUM SERUM 133 mmol/L (136-145); TOTAL BILIRUBIN 10.1 mg/dL (0.0-1.0)
[2023-04-17 12:49] LABS: UREA NITROGEN, BLOOD 80 mg/dL (7-18)
[2023-04-17] MEDS: CEFEPIME 500 MG in DEXTROSE 5% 50 ML IV SCH (13:08)
[2023-04-17] MEDS: FOAM DRESSING TP SCH (13:11)
[2023-04-17] MEDS: GAUZE TP SCH (13:11)
[2023-04-17] MEDS ORDERED: POTASSIUM CHLORIDE 20% 40 MEQ/15 ML UDC PO SCH (14:00)
[2023-04-18] VITALS: BP 140/46; PULSE 79; PULSE 83; RESP 18; TEMP 98.6; O2SAT 99
[2023-04-18] MEDS: HYDRAGUARD CREAM TP SCH (01:28)
== END 2023-04-18 03:38 | disposition short-term general hospital (02) | DRG 637 ==
LOC: MED 15:04 → MTU 18:24 → MIC 18:42 → MTU 04-09 19:00 → MLD 04-10 14:58 → MIC 04-10 15:03 → MTU 04-13 04:45
PROVIDERS: ADMIT Student in an Organized Health Care Education/Training Program; ATTEND Student in an Organized Health Care Education/Training Program
PROC: 05HY33Z Insertion of Infusion Device into Upper Vein, Percutaneous Approach (ICD-10-PCS; principal; 2023-04-10)
DX: E11.10 Type 2 diabetes mellitus with ketoacidosis without coma (principal); A41.9 Sepsis, unspecified organism; K83.1 Obstruction of bile duct; J96.01 Acute respiratory failure with hypoxia; I13.0 Hypertensive heart and chronic kidney disease with heart failure and stage 1 through stage 4 chronic kidney disease, or unspecified chronic kidney disease; N17.9 Acute kidney failure, unspecified; N39.0 Urinary tract infection, site not specified; Z68.42 Body mass index [BMI] 45.0-49.9, adult; I50.30 Unspecified diastolic (congestive) heart failure; E11.22 Type 2 diabetes mellitus with diabetic chronic kidney disease; E66.9 Obesity, unspecified; F10.21 Alcohol dependence, in remission; N18.9 Chronic kidney disease, unspecified; I25.10 Atherosclerotic heart disease of native coronary artery without angina pectoris; E11.21 Type 2 diabetes mellitus with diabetic nephropathy; E78.5 Hyperlipidemia, unspecified; F17.200 Nicotine dependence, unspecified, uncomplicated; R09.89 Other specified symptoms and signs involving the circulatory and respiratory systems; Z79.4 Long term (current) use of insulin
CPT/HCPCS: 36415; 71045; 74150; 76700; 76770; 78445; 80048; 80053; 81001; 82009; 82803; 82947; 82948; 83036; 83605; 83735; 84100; 84436; 84439; 84443; 84479; 85025; 85379; 85610; 86704; 86706; 86708; 86709; 86803; 87040; 87081; 87086; 87340; 93970; 94640; 96361; 96365; 96367; 99291; 99292; J0692; J0696; J1644; J1815; J1940; J2060; J2185; J2270; J3430; J3480; J3490; J7060; J7512; J7626; Q0092